=== PATIENT | female | born 1995 | race Two or more races ===

== ENCOUNTER 2018-04-26 02:20 | Emergency (ER) | payer MEDICAID ==
[~2018-04-26] VITALS: Ht 162.6 cm; Wt 77.1 kg
[2018-04-26 03:16] LABS: Basophils # (auto) 0.1 uL; Basophils % (auto) 0.5 % (0.0-2.0); Eosinophils # (auto) 0.3 uL; Eosinophils % (auto) 2.5 % (0.0-7.0); Hemoglobin 14.1 g/dL (12.2-16.2); Lymphocytes # (auto) 2.5 uL; Lymphocytes % (auto) 24.9 % (10.0-50.0); Mean Corpuscular Hemoglobin 31.2 pg (28.0-32.0); Mean Corpuscular Hgb Conc. 33.6 g/dL (32.0-36.0); Mean Corpuscular Volume 92.9 fL (80.0-100.0); Monocytes # (auto) 0.7 uL; Monocytes % (auto) 7.3 % (0.0-12.0); Neutrophils # (auto) 6.6 uL; Neutrophils % (auto) 64.8 % (37.0-80.0); Platelet Count (auto) 281 10^3/uL (140-450); Red Blood Cells 4.52 10^6/uL (4.0-5.20); Red Cell Distribution Width 13.5 % (11.8-14.3); White Blood Cell 10.2 10^3/uL (4.4-10.8)
[2018-04-26 03:34] LABS: Albumin 3.7 g/dL (3.4-5.0); Calcium 8.6 mg/dL (8.5-10.1); Potassium 3.8 mmol/L (3.5-5.1)
[2018-04-26 03:37] LABS: BUN/Creatinine Ratio 12.5; Bilirubin, Total 0.2 mg/dL (0.2-1.0); Total Protein 7.5 g/dL (6.4-8.2)
[2018-04-26 03:40] LABS: Urine Bacteria NONE SEEN /hpf (None Seen); Urine Blood 1+ /uL (Negative); Urine Specific Gravity 1.009 (1.001-1.035); Urine WBC 1 /hpf (0 - 5)
[2018-04-26 07:30] VITALS: BP 127/59
== END 2018-04-26 13:40 | disposition home or self-care (01) ==
LOC: ER 02:26
DX: O20.0 Threatened abortion (principal); Z3A.01 Less than 8 weeks gestation of pregnancy
CPT/HCPCS: 36415; 76801; 76817; 80053; 81001; 84702; 85025

== ENCOUNTER 2018-05-11 23:59 | Emergency (ER) | payer MEDICAID ==
[~2018-05-11] VITALS: Ht 157.5 cm; Wt 65.8 kg
[2018-05-12 00:05] VITALS: BP 147/84
== END 2018-05-12 01:15 | disposition left against medical advice (07) ==
LOC: EDBD 23:59 → ER 05-12 00:01
DX: O26.891 Other specified pregnancy related conditions, first trimester (principal); R10.9 Unspecified abdominal pain; Z53.21 Procedure and treatment not carried out due to patient leaving prior to being seen by health care provider; Z3A.01 Less than 8 weeks gestation of pregnancy; Y04.2XXA Assault by strike against or bumped into by another person, initial encounter
CPT/HCPCS: 76801

== ENCOUNTER 2018-06-30 14:28 | Emergency (ER) | payer SELFPAY ==
[~2018-06-30] VITALS: Ht 66 cm; Wt 78.0 kg
[2018-06-30 14:46] VITALS: BP 101/59
[2018-06-30 15:34] LABS: Basophils # (auto) 0 uL; Basophils % (auto) 0.2 % (0.0-2.0); Eosinophils # (auto) 0.1 uL; Eosinophils % (auto) 0.9 % (0.0-7.0); Hematocrit 40.7 % (36.0-46.0); Hemoglobin 13.6 g/dL (12.2-16.2); Lymphocytes # (auto) 1.2 uL; Lymphocytes % (auto) 13.7 % (10.0-50.0); Mean Corpuscular Hemoglobin 30.9 pg (28.0-32.0); Mean Corpuscular Hgb Conc. 33.4 g/dL (32.0-36.0); Mean Corpuscular Volume 92.4 fL (80.0-100.0); Monocytes # (auto) 0.5 uL; Monocytes % (auto) 5.6 % (0.0-12.0); Neutrophils % (auto) 79.6 % (37.0-80.0); Platelet Count (auto) 241 10^3/uL (140-450); White Blood Cell 8.8 10^3/uL (4.4-10.8)
[2018-06-30 15:41] LABS: Urine Bacteria FEW /hpf (None Seen); Urine Blood 1+ /uL (Negative); Urine Mucus FEW (None Seen); Urine Specific Gravity 1.023 (1.001-1.035); Urine WBC 2 /hpf (0 - 5)
[2018-06-30 15:46] LABS: Albumin 3.1 g/dL (3.4-5.0); Calcium 8.5 mg/dL (8.5-10.1); Potassium 3.7 mmol/L (3.5-5.1)
[2018-06-30 15:50] LABS: BUN/Creatinine Ratio 13.6; Bilirubin, Total 0.3 mg/dL (0.2-1.0); Total Protein 7.1 g/dL (6.4-8.2)
== END 2018-06-30 22:52 | disposition left against medical advice (07) ==
LOC: ER 14:35
CPT/HCPCS: 36415; 76805; 80053; 81001; 84702; 85025

== ENCOUNTER 2018-11-06 07:56 | Observation (INO) | payer MEDICAID ==
[2018-11-06 08:00] VITALS: BP 101/80
[2018-11-06] MEDS ORDERED: BETAMETHASONE ACET (6MG/ML) 5ML VIAL IM ONE (08:45)
[2018-11-06] MEDS ORDERED: TERBUTALINE SULFATE 1 MG/ML 1ML VIAL SC SCH (10:00)
[2018-11-06] MEDS ORDERED: LACTATED RINGER'S 1,000 ML IV ONE (10:27)
[2018-11-06] MEDS ORDERED: NALBUPHINE HCL 10 MG/1ml INJECTION IV PRN (10:30)
[2018-11-06] MEDS ORDERED: ceFAZolin 1GM/50ML 50 ML IV ONE (11:45)
[2018-11-06] MEDS ORDERED: PREN-96 PO (13:22)
[2018-11-06] MEDS ORDERED: NIF10C PO (13:23)
[2018-11-06 13:41] LABS: Urine Bacteria FEW /hpf (None Seen); Urine Blood Negative /uL (Negative); Urine Mucus FEW (None Seen); Urine Specific Gravity 1.021 (1.001-1.035); Urine WBC 2 /hpf (0 - 5)
== END 2018-11-06 13:15 | disposition home or self-care (01) | DRG 563 ==
LOC: ER 07:59 → LDRP 08:05
PROVIDERS: ADMIT Obstetrics & Gynecology; ATTEND Obstetrics & Gynecology
DX: O60.03 Preterm labor without delivery, third trimester (principal); O26.893 Other specified pregnancy related conditions, third trimester; N89.8 Other specified noninflammatory disorders of vagina; O21.2 Late vomiting of pregnancy; O26.853 Spotting complicating pregnancy, third trimester; Z3A.35 35 weeks gestation of pregnancy
CPT/HCPCS: 59025; 76805; 81001; 81002; 87086; 96361; 96365; 96372; 96375; G0378; J0690; J0702; J2300; J3105; 96374

== ENCOUNTER 2018-11-07 12:50 | Observation (INO) | payer MEDICAID ==
[~2018-11-07] VITALS: Ht 157.5 cm; Wt 77.6 kg
[~2018-11-07 12:50] MED LIST: NIF10C PO; PREN-96 PO
[2018-11-07] MEDS ORDERED: BETAMETHASONE ACET (6MG/ML) 5ML VIAL IM ONE (15:15)
[2018-11-08] MEDS ORDERED: BETAMETHASONE ACET (6MG/ML) 5ML VIAL IM SCH (10:00)
== END 2018-11-07 15:35 | disposition home or self-care (01) | DRG 563 ==
LOC: LDRP 12:50
PROVIDERS: ADMIT Specialist; ATTEND Specialist
DX: O60.03 Preterm labor without delivery, third trimester (principal); Z3A.35 35 weeks gestation of pregnancy
CPT/HCPCS: 59025; 76815; 81002; 96372; G0378

== ENCOUNTER → 2018-11-23 | Outpatient (CLI) | payer MEDICAID ==
[2018-11-23 11:56] LABS: Basophils # (auto) 0 uL; Basophils % (auto) 0.3 % (0.0-2.0); Eosinophils # (auto) 0.1 uL; Eosinophils % (auto) 0.8 % (0.0-7.0); Hematocrit 37.3 % (36.0-46.0); Hemoglobin 12.6 g/dL (12.2-16.2); Lymphocytes # (auto) 1.6 uL; Lymphocytes % (auto) 23.8 % (10.0-50.0); Mean Corpuscular Hemoglobin 31.6 pg (28.0-32.0); Mean Corpuscular Hgb Conc. 33.8 g/dL (32.0-36.0); Mean Corpuscular Volume 93.5 fL (80.0-100.0); Monocytes # (auto) 0.5 uL; Monocytes % (auto) 8.2 % (0.0-12.0); Neutrophils # (auto) 4.4 uL; Neutrophils % (auto) 66.9 % (37.0-80.0); Platelet Count (auto) 218 10^3/uL (140-450); Red Blood Cells 3.99 10^6/uL (4.0-5.20); Red Cell Distribution Width 13.2 % (11.8-14.3); White Blood Cell 6.7 10^3/uL (4.4-10.8)
[2018-11-23 12:52] LABS: Alcohol, Urine < 3.0 mg/dL (0-5); Amphetamine Screen, Urine NEGATIVE (NEGATIVE); Barbiturate Scree,Urine NEGATIVE (NEGATIVE); Benzodiazephine Screen, Urine NEGATIVE (NEGATIVE); Cannabinoid Screen, Urine NEGATIVE (NEGATIVE); Cocaine Screen, Urine NEGATIVE (NEGATIVE); Opiate Scree,Urine NEGATIVE (NEGATIVE); Phencyclidine Screen, Urine NEGATIVE (NEGATIVE)
[2018-11-24 05:06] LABS: RPR Non Reactive (Non Reactive)
== END | disposition home or self-care (01) ==
LOC: LAB 11:31
PROVIDERS: ATTEND Obstetrics & Gynecology
DX: O23.593 Infection of other part of genital tract in pregnancy, third trimester (principal); Z31.430 Encounter of female for testing for genetic disease carrier status for procreative management; Z3A.34 34 weeks gestation of pregnancy
CPT/HCPCS: 36415; 80307; 85025; 86703; 86762; 86850; 86900; 86901; 87086; 87340

== ENCOUNTER → 2018-11-30 | Outpatient (CLI) | payer MEDICAID ==
[2018-11-30 09:01] LABS: Basophils # (auto) 0 uL; Basophils % (auto) 0.4 % (0.0-2.0); Eosinophils # (auto) 0 uL; Eosinophils % (auto) 0.7 % (0.0-7.0); Hematocrit 38.2 % (36.0-46.0); Lymphocytes % (auto) 27.9 % (10.0-50.0); Mean Corpuscular Hemoglobin 31.7 pg (28.0-32.0); Mean Corpuscular Hgb Conc. 34.1 g/dL (32.0-36.0); Mean Corpuscular Volume 92.9 fL (80.0-100.0); Monocytes # (auto) 0.4 uL; Monocytes % (auto) 6.1 % (0.0-12.0); Neutrophils # (auto) 4.7 uL; Neutrophils % (auto) 64.9 % (37.0-80.0); Nucleated Red Blood Cells % 0.1 %; Platelet Count (auto) 215 10^3/uL (140-450); Red Blood Cells 4.11 10^6/uL (4.0-5.20); Red Cell Distribution Width 12.6 % (11.8-14.3); White Blood Cell 7.3 10^3/uL (4.4-10.8)
== END | disposition home or self-care (01) ==
LOC: LAB 08:14
PROVIDERS: ATTEND Obstetrics & Gynecology
DX: Z34.83 Encounter for supervision of other normal pregnancy, third trimester (principal); Z3A.35 35 weeks gestation of pregnancy
CPT/HCPCS: 36415; 85025

== ENCOUNTER 2018-12-26 23:04 | Observation (INO) | payer MEDICAID | END 2018-12-26 23:55 | disposition home or self-care (01) | DRG 566 | LOC: LDRP 23:04 | PROVIDERS: ADMIT Obstetrics & Gynecology; ATTEND Obstetrics & Gynecology | DX: O00.01 Abdominal pregnancy with intrauterine pregnancy (principal); N89.8 Other specified noninflammatory disorders of vagina; O62.9 Abnormality of forces of labor, unspecified; R10.9 Unspecified abdominal pain; Z3A.39 39 weeks gestation of pregnancy | CPT/HCPCS: 59025; 81002; G0378 ==

== ENCOUNTER 2018-12-29 14:28 | Observation (INO) | payer MEDICAID | END 2018-12-29 15:35 | disposition home or self-care (01) | DRG 566 | LOC: LDRP 14:28 | PROVIDERS: ADMIT Obstetrics & Gynecology; ATTEND Obstetrics & Gynecology | DX: O26.893 Other specified pregnancy related conditions, third trimester (principal); N89.8 Other specified noninflammatory disorders of vagina; R10.2 Pelvic and perineal pain; O48.0 Post-term pregnancy; Z3A.40 40 weeks gestation of pregnancy | CPT/HCPCS: 59025; 76818; 81002; G0378 ==

== ENCOUNTER 2018-12-29 21:22 | Inpatient (IN) | payer MEDICAID | END 2018-12-31 18:30 | disposition home or self-care (01) | LOC: LDRP 21:22 | PROC: 10E0XZZ Delivery of Products of Conception, External Approach (ICD-10-PCS; principal; ~2018-12-29) | DX: O80 Encounter for full-term uncomplicated delivery (principal); Z37.0 Single live birth; O72.1 Other immediate postpartum hemorrhage; Z3A.39 39 weeks gestation of pregnancy ==

== ENCOUNTER 2019-03-19 20:36 | Emergency (ER) | payer MEDICAID ==
[~2019-03-19] VITALS: Ht 157.5 cm; Wt 80.7 kg
[~2019-03-19 20:36] MED LIST changes: -NIF10C PO
[2019-03-19 20:48] VITALS: BP 132/80
[2019-03-20] MEDS ORDERED: IBUPROFEN 800 MG TAB PO ONE (04:00)
== END 2019-03-20 04:09 | disposition home or self-care (01) ==
LOC: ER 20:37
DX: S93.401A Sprain of unspecified ligament of right ankle, initial encounter (principal); Z79.899 Other long term (current) drug therapy; X50.1XXA Overexertion from prolonged static or awkward postures, initial encounter; Y93.89 Activity, other specified; Y99.8 Other external cause status; Y92.89 Other specified places as the place of occurrence of the external cause
CPT/HCPCS: 73610

== ENCOUNTER 2020-03-06 18:44 | Emergency (ER) | payer MEDICAID ==
[~2020-03-06] VITALS: Ht 157.5 cm; Wt 81.6 kg
[2020-03-06 18:54] VITALS: BP 123/86
[2020-03-06] MEDS ORDERED: cefTRIAXone SOD 1,000 MG VL IM ONE (21:15)
[2020-03-06] MEDS ORDERED: KETOROLAC TROMETH 60MG/2ML VIAL IM ONE (21:15)
== END 2020-03-06 22:05 | disposition home or self-care (01) ==
LOC: ER 18:44
DX: L73.9 Follicular disorder, unspecified (principal); L02.214 Cutaneous abscess of groin; Z79.899 Other long term (current) drug therapy
CPT/HCPCS: 96372; 99284; J0696; J1885

== ENCOUNTER 2020-05-05 08:47 | Emergency (ER) | payer MEDICAID ==
[~2020-05-05] VITALS: Ht 160 cm; Wt 74.8 kg
[2020-05-05] MEDS ORDERED: KETOROLAC TROMETH 60MG/2ML VIAL IM ONE (10:45)
[2020-05-05 11:02] VITALS: BP 127/81
== END 2020-05-05 11:03 | disposition home or self-care (01) ==
LOC: ER 08:47
DX: S46.911A Strain of unspecified muscle, fascia and tendon at shoulder and upper arm level, right arm, initial encounter (principal); W18.39XA Other fall on same level, initial encounter; Y93.89 Activity, other specified; Y92.89 Other specified places as the place of occurrence of the external cause; Y99.8 Other external cause status
CPT/HCPCS: 73030; 96372; 99283; J1885

== ENCOUNTER 2020-12-13 13:10 | Emergency (ER) | payer MEDICAID ==
[~2020-12-13] VITALS: Ht 157.5 cm; Wt 68.0 kg
[2020-12-13 13:14] VITALS: BP 115/66
[2020-12-13 16:02] LABS: Urine Bacteria NONE SEEN /hpf (None Seen); Urine Blood 1+ /uL (Negative); Urine Specific Gravity 1.016 (1.001-1.035); Urine WBC 1 /hpf (0 - 5)
== END 2020-12-13 16:18 | disposition home or self-care (01) ==
LOC: ER 13:10
DX: N83.02 Follicular cyst of left ovary (principal); N83.01 Follicular cyst of right ovary; Z32.02 Encounter for pregnancy test, result negative; Z79.899 Other long term (current) drug therapy
CPT/HCPCS: 76856; 81001; 81025

== ENCOUNTER 2021-08-23 12:14 | Emergency (ER) | payer MEDICAID ==
[~2021-08-23] VITALS: Ht 157.5 cm; Wt 68.0 kg
[2021-08-23 14:15] VITALS: BP 116/78
[2021-08-23 15:07] LABS: Urine Bacteria NONE SEEN /hpf (None Seen); Urine Blood 1+ /uL (Negative); Urine Mucus FEW (None Seen); Urine Specific Gravity 1.031 (1.001-1.035); Urine WBC 43 /hpf (0 - 5)
[2021-08-23 15:28] LABS: Alcohol, Urine < 3.0 mg/dL (0-10); Amphetamine Screen, Urine POSITIVE (NEGATIVE); Barbiturate Scree,Urine NEGATIVE (NEGATIVE); Benzodiazephine Screen, Urine NEGATIVE (NEGATIVE); Cannabinoid Screen, Urine POSITIVE (NEGATIVE); Cocaine Screen, Urine NEGATIVE (NEGATIVE); Opiate Scree,Urine NEGATIVE (NEGATIVE); Phencyclidine Screen, Urine NEGATIVE (NEGATIVE)
[2021-08-23] MEDS ORDERED: KETOROLAC TROMETH 60MG/2ML VIAL IM ONE (16:45)
[2021-08-23] MEDS ORDERED: IBUP800T27 PO (16:50)
[2021-08-23] MEDS ORDERED: CIPR-173 PO (16:50)
== END 2021-08-23 17:06 | disposition home or self-care (01) ==
LOC: ER 12:14 → EDBD 12:14 → ER 17:05
DX: S42.032A Displaced fracture of lateral end of left clavicle, initial encounter for closed fracture (principal); R51.9 Headache, unspecified; N39.0 Urinary tract infection, site not specified; F15.10 Other stimulant abuse, uncomplicated; Z79.1 Long term (current) use of non-steroidal anti-inflammatories (NSAID); Z79.2 Long term (current) use of antibiotics; Z79.899 Other long term (current) drug therapy; V19.9XXA Pedal cyclist (driver) (passenger) injured in unspecified traffic accident, initial encounter; Y93.89 Activity, other specified; Y92.89 Other specified places as the place of occurrence of the external cause; Y99.8 Other external cause status
CPT/HCPCS: 70450; 73030; 80307; 81001; 81025; 96372; 99285; J1885